=== PATIENT | male | born 1940 | race Native Hawaiian/Other Pacific Islander ===

== ENCOUNTER 2017-01-02 18:00 | Inpatient (IN) | payer MEDICARE, OTHER ==
[~2017-01-02] VITALS: Ht 175.3 cm; Wt 75.3 kg
[2017-01-02] MEDS ORDERED: IV D5 1/2 NS 1000 ML 1,000 ML IV ONE (18:15)
[2017-01-02 18:37] LABS: BASOPHILS % (AUTO) 0.4 % (0.0-2.0); EOSINOPHILS % (AUTO) 0.2 % (0.0-7.0); HEMATOCRIT 34.5 % (40.0-50.0); HEMOGLOBIN 11.4 g/dL (14.0-18.0); LYMPHOCYTES # (AUTO) 0.8 K/uL (0.8-4.8); LYMPHOCYTES % (AUTO) 7.9 % (20.5-51.5); MEAN CORPUSCULAR HEMOGLOBIN 31.5 uug (27.0-31.0); MEAN CORPUSCULAR HGB CONC 33 g/dL (32.0-37.0); MEAN CORPUSCULAR VOLUME 95.6 fL (82.0-92.0); MONOCYTES # (AUTO) 0.7 K/uL (0.1-1.30); MONOCYTES % (AUTO) 6.6 % (0.0-11.0); NEUTROPHILS # (AUTO) 8.6 K/uL (1.8-8.9); NEUTROPHILS % (AUTO) 84.9 % (38.5-71.5); PLATELET COUNT (AUTO) 178 K/uL (150-450); RED BLOOD CELL COUNT(AUTO) 3.61 MIL/uL (4.70-6.10); RED CELL DISTRIBUTION WIDTH 12.6 % (11.5-14.5); WHITE BLOOD COUNT (AUTO) 10.1 K/uL (4.0-11.2)
[2017-01-02] MEDS ORDERED: BLOO-360 IN (18:37)
[2017-01-02] MEDS ORDERED: ATOR80TA PO (18:37)
[2017-01-02] MEDS ORDERED: CLOP75TA2 PO (18:37)
[2017-01-02] MEDS ORDERED: MIRT15TA PO (18:37)
[2017-01-02] MEDS ORDERED: [UNRECOGNIZED DRUG - SUPPLY] (18:37)
[2017-01-02] MEDS ORDERED: RANO10003 PO (18:37)
[2017-01-02] MEDS ORDERED: FURO-151 PO (18:37)
[2017-01-02] MEDS ORDERED: INSU3INS6 SUBCUT (18:37)
[2017-01-02] MEDS ORDERED: LISI-607 PO (18:37)
[2017-01-02] MEDS ORDERED: ALBU2.5V13 IH (18:37)
[2017-01-02] MEDS ORDERED: PANT40TA2 PO (18:37)
[2017-01-02] MEDS ORDERED: ASPI81TA31 PO (18:37)
[2017-01-02] MEDS ORDERED: CARV25TA2 PO (18:37)
[2017-01-02] MEDS ORDERED: HYDR-552 PO (18:37)
[2017-01-02] MEDS ORDERED: METF10002 PO (18:37)
[2017-01-02] MEDS ORDERED: SPIR25TA4 PO (18:37)
[2017-01-02] MEDS ORDERED: MECL12.582 PO (18:37)
[2017-01-02] MEDS ORDERED: ACET-2154 PO ×2 (18:37)
--- NOTE | 2017-01-02 18:53 | NUR ---
Dr Savage is at bedside evaluating the patient.
[2017-01-02 18:57] LABS: BILIRUBIN,DIRECT 0.2 mg/dL (0.0-0.2); BILIRUBIN,TOTAL 0.6 mg/dL (0.2-1.0); CALCIUM 8.9 mg/dL (8.5-10.1); POTASSIUM 4.4 mmol/L (3.5-5.1); TOTAL PROTEIN, SERUM 7.5 g/dL (6.4-8.2)
[2017-01-02 18:59] LABS: CREATININE 4.8 mg/dL (0.6-1.3)
[2017-01-02 19:25] LABS: ETHANOL < 3 MG/DL (0-0)
[2017-01-02 19:40] LABS: LACTIC ACID 3.3 mmol/L (0.4-2.0)
--- NOTE | 2017-01-02 20:15 | NUR ---
Patient's daughter informed staff that she was speaking with the patient's primary care provider who has admitting priveledges at [facility]. Family attempting to request transfer to that hospital for continuity of care. Education provided regarding policies, information given to family to assist them in making decision.
[2017-01-02] MEDS ORDERED: IV NORMAL SALINE 1000 ML BAG IV ONE (20:30)
[2017-01-02] MEDS ORDERED: PIPERACILLIN/TAZO 0.75 G in IV DEXTROSE 5% 50 ML IV PRN (20:30)
[2017-01-02 20:51] LABS: *BILIRUBIN,URIN NEGATIVE (NEGATIVE); *BLOOD, URINE NEGATIVE (NEGATIVE); *CLARITY,URINE CLEAR (CLEAR); *COLOR,URINE YELLOW (YELLOW); *KETONES,URINE NEGATIVE (NEGATIVE); *PROTEIN,URINE NEGATIVE (NEGATIVE); *UROBILINOGEN,URINE 0.2 E.U./dl (NORMAL); LEUKOCYTE ESTERASE ,URINE NEGATIVE (NEGATIVE); NITRITE, URINE NEGATIVE (NEGATIVE); UGLUCOSE NEGATIVE (NEGATIVE)
[2017-01-02 21:25] LABS: *CANNABINOID, URINE NEGATIVE (NEGATIVE); *PHENCYCLIDINE SCREEN,URINE NEGATIVE (NEGATIVE)
[2017-01-02 21:26] LABS: *AMPHETAMINE, URINE NEGATIVE (NEGATIVE); *BARBITURATE, URINE NEGATIVE (NEGATIVE)
[2017-01-02 21:27] LABS: *COCCAINE, URINE NEGATIVE (NEGATIVE); *OPIATE, URINE NEGATIVE (NEGATIVE)
[2017-01-02] MEDS ORDERED: PIPERACILLIN/TAZOBACTAM/D5W 50 ML ONE (21:27)
--- NOTE | 2017-01-02 21:30 | NUR ---
Patient's daughter informed staff that PMD unable to obtain bed at [place]. Patient's daughter requested to admit to this hospital instead.
--- NOTE | 2017-01-02 21:43 | NUR ---
Call placed to [facility] nephrology, Dr. Escobedo will be paged.
--- NOTE | 2017-01-02 22:26 | NUR ---
SBAR report to [facility]. Room not ready for patient at this time. Nursing Traffic Inspector notified.
[2017-01-02] MEDS ORDERED: IV 10% DEXTROSE 1,000 ML IV STA (23:08)
--- NOTE | 2017-01-02 23:59 | NUR ---
Pt. admitted to TELE, under care of Dr. Ecsobedo Belongs List completed
--- NOTE | 2017-01-03 | NUR ---
ADMITTEDTHIS 76 Y.O. MALE VIA GUERNEY ACCOMPANIED BY ER NURSE APPEARS WEAK AND LETHARGIC, CONFUSED, RESPONDS TO NAME,VS STABLE, ON TELE SINUS 73, SKIN WARM AND DRY, NO OPEN AREAS NOTED, LEFT UPPER EXTREMITY WEAK AND FLACCID,ADMISSION ASSESSMENT DONE, 2 IVLINES ON EACH HANDS,PATENT AND NO SSX OF INFILTRATION . DR. SHAH NOTIFIED AND GAVE ADMISSION ORDERS. NEEDS ATTENDED TO.
[2017-01-03 00:28] VITALS: BP 114/67
[2017-01-03] MEDS ORDERED: IV NS 1000 ML 1,000 ML IV PRN (01:00)
[2017-01-03] MEDS ORDERED: ONDANSETRON 4 MG/2 ML VIAL IV PRN (01:00)
[2017-01-03] MEDS ORDERED: DEXTROSE 50% 50 ML DISP.SYRIN IV PRN (01:00)
[2017-01-03] MEDS ORDERED: ZOLPIDEM 5 MG TABLET ONE (01:22)
--- NOTE | 2017-01-03 02:00 | NUR ---
MEDICATED WITH AMBIEN AND REPOSITIONED FOR COMFORT,KEPT WARM AND DRY, F/C DRAINING WELL TO TEA COLORED URINE, REORIENTATION PROVIDED.CALL LITE W/I REACH.
[2017-01-03 04:00] VITALS: BP 131/81
[2017-01-03] MEDS ORDERED: MAGN400O4 PO (04:03)
[2017-01-03] MEDS ORDERED: DEXT50DI8 IV (04:03)
[2017-01-03] MEDS ORDERED: GLUC1KIT IJ (04:03)
[2017-01-03] MEDS ORDERED: DOCU-170 PO (04:03)
[2017-01-03] MEDS ORDERED: DEXT15LI44 PO (04:03)
[2017-01-03] MEDS ORDERED: BISA-79 PO (04:03)
[2017-01-03 04:24] VITALS: BP 114/67
--- NOTE | 2017-01-03 05:41 | NUR ---
SLEPT ON AND OFF, O2 AT 2L/VIA NC ON , MILD SOB,NOTED, HOB UP 30 DEGREES,LAKEISHA CONTINUE TO MONITOR
[2017-01-03] MEDS: BLOOD SUGAR DIAGNOSTIC 1 EACH STRIP VI SCH ×5 (06:13→21:14)
[2017-01-03] MEDS ORDERED: DEXTROSE 50% 50 ML DISP.SYRIN ONE (06:25)
[2017-01-03 06:50] LABS: BASOPHILS # (AUTO) 0.1 K/uL (0.0-0.2); BASOPHILS % (AUTO) 1.1 % (0.0-2.0); EOSINOPHILS % (AUTO) 0.3 % (0.0-7.0); HEMOGLOBIN 10.6 g/dL (14.0-18.0); LYMPHOCYTES # (AUTO) 1.8 K/uL (0.8-4.8); LYMPHOCYTES % (AUTO) 20.8 % (20.5-51.5); MEAN CORPUSCULAR HEMOGLOBIN 32.2 uug (27.0-31.0); MEAN CORPUSCULAR HGB CONC 33 g/dL (32.0-37.0); MEAN CORPUSCULAR VOLUME 96.8 fL (82.0-92.0); MONOCYTES # (AUTO) 0.8 K/uL (0.1-1.30); NEUTROPHILS # (AUTO) 5.8 K/uL (1.8-8.9); NEUTROPHILS % (AUTO) 68.8 % (38.5-71.5); PLATELET COUNT (AUTO) 165 K/uL (150-450); RED CELL DISTRIBUTION WIDTH 12.8 % (11.5-14.5); WHITE BLOOD COUNT (AUTO) 8.5 K/uL (4.0-11.2)
[2017-01-03 06:57] LABS: ALBUMIN 3.6 g/dL (3.4-5.0); BILIRUBIN,TOTAL 0.6 mg/dL (0.2-1.0); CALCIUM 8.5 mg/dL (8.5-10.1); MAGNESIUM 2.1 mg/dL (1.8-2.4); PHOSPHOROUS 3.2 mg/dL (2.5-4.9); POTASSIUM 4.1 mmol/L (3.5-5.1); TOTAL PROTEIN, SERUM 6.8 g/dL (6.4-8.2)
[2017-01-03 07:35] LABS: CREATININE 3.7 mg/dL (0.6-1.3)
--- NOTE | 2017-01-03 07:42 | NUR ---
PER LAB PT BLOOD SUGAR REPORTED 25 ,RECHECK THE BLOOD SUGAR IS 96 NOTIFIED
[2017-01-03] MEDS ORDERED: ALBUTEROL SULFATE 2.5 MG/ 0.5 ML NEBU IH PRN (07:45)
[2017-01-03] MEDS ORDERED: DOCUSATE SODIUM 100 MG CAPSULE PO PRN (07:45)
[2017-01-03] MEDS ORDERED: MAGNESIUM HYDROXIDE 30 ML LIQUID UDC PO PRN (07:45)
[2017-01-03] MEDS ORDERED: BISACODYL 5 MG TABLET.DR PO PRN (07:45)
[2017-01-03] MEDS ORDERED: ACETAMINOPHEN 325 MG TABLET PO PRN (07:45)
[2017-01-03] MEDS ORDERED: MECLIZINE HCL 12.5 MG TABLET PO PRN (07:45)
[2017-01-03] MEDS ORDERED: HYDROCODONE/APAP 5-325MG TABLET PO PRN ×2 (07:45)
[2017-01-03] MEDS: CARVEDILOL 25 MG TABLET PO SCH ×2 (07:59→17:07)
[2017-01-03] MEDS: PANTOPRAZOLE SODIUM 40 MG TABLET.DR PO SCH (07:59)
[2017-01-03] MEDS: ASPIRIN 81 MG TAB.CHEW PO SCH (08:00)
[2017-01-03] MEDS: CLOPIDOGREL 75 MG TABLET PO SCH (08:00)
[2017-01-03] MEDS ORDERED: ALBUTEROL SULFATE 2.5 MG/3 ML NEBU NEB PRN (08:00)
[2017-01-03] MEDS ORDERED: FUROSEMIDE 40 MG TABLET PO SCH (09:00)
[2017-01-03] MEDS ORDERED: LISINOPRIL 5 MG TABLET PO SCH (09:00)
[2017-01-03] MEDS: IV D5/ 0.9% NACL 1,000 ML IV PRN (09:14)
[2017-01-03] MEDS: RANOLAZINE 500 MG TAB.ER.12H PO SCH ×2 (09:36→20:44)
[2017-01-03 11:06] LABS: *CREATININE,URINE 81.1 mg/dL (30-125); *URINE TOTAL PROTEIN RANDOM 20.3 mg/dL (<150/24HR)
[2017-01-03 11:33] VITALS: BP 103/52
[2017-01-03 11:46] LABS: *BILIRUBIN,URIN NEGATIVE (NEGATIVE); *BLOOD, URINE 2+ (NEGATIVE); *COLOR,URINE YELLOW (YELLOW); *KETONES,URINE NEGATIVE (NEGATIVE); *PROTEIN,URINE NEGATIVE (NEGATIVE); *UROBILINOGEN,URINE 0.2 E.U./dl (NORMAL); LEUKOCYTE ESTERASE ,URINE 1+ (NEGATIVE); NITRITE, URINE NEGATIVE (NEGATIVE); UGLUCOSE NEGATIVE (NEGATIVE)
[2017-01-03 12:18] LABS: *CLARITY,URINE HAZY (CLEAR)
[2017-01-03 12:25] LABS: BACTERIA,URINE FEW /HPF (NONE SEEN); WBC,URINE 0-3 /HPF (0-3)
[2017-01-03 12:26] LABS: SQUAMOUS EPITHELIAL CELL,UR FEW /HPF (NONE SEEN)
[2017-01-03 15:54] VITALS: BP 94/64
--- NOTE | 2017-01-03 19:30 | NUR ---
Received patient awake with no complaints of pain. No s/s of distress. Call light within reach. Will continue to monitor.
[2017-01-03 20:00] VITALS: BP 116/70
[2017-01-03] MEDS: MIRTAZAPINE 15 MG TABLET PO SCH (20:44)
[2017-01-03] MEDS: ATORVASTATIN 40 MG TABLET PO SCH (20:44)
[2017-01-03] MEDS ORDERED: INSULIN DETEMIR 300 UNIT/3 ML CARTRIDGE SQ SCH (21:00)
[2017-01-04] VITALS: BP 116/73
[2017-01-04] MEDS: ZOLPIDEM 5 MG TABLET PO PRN (02:54)
[2017-01-04 04:00] VITALS: BP 117/75
[2017-01-04] MEDS: IV D5/ 0.9% NACL 1,000 ML IV PRN (05:23)
[2017-01-04] MEDS: PANTOPRAZOLE SODIUM 40 MG TABLET.DR PO SCH (06:17)
[2017-01-04] MEDS: BLOOD SUGAR DIAGNOSTIC 1 EACH STRIP VI SCH ×4 (06:21→22:33)
--- NOTE | 2017-01-04 06:48 | NUR ---
Patient awake in bed, no s/s of distress. No complaints of pain at this time. Due meds given. Frequent checks done to ensure safety. Call light kept within reach. Kept comfortable. Needs attended. Endorsed accordingly.
[2017-01-04 07:14] LABS: BASOPHILS % (AUTO) 0.6 % (0.0-2.0); EOSINOPHILS # (AUTO) 0.2 K/uL (0.0-0.7); EOSINOPHILS % (AUTO) 2.2 % (0.0-7.0); HEMATOCRIT 33.9 % (40.0-50.0); HEMOGLOBIN 11.3 g/dL (14.0-18.0); LYMPHOCYTES # (AUTO) 1.7 K/uL (0.8-4.8); LYMPHOCYTES % (AUTO) 20.8 % (20.5-51.5); MEAN CORPUSCULAR HEMOGLOBIN 32.3 uug (27.0-31.0); MEAN CORPUSCULAR HGB CONC 33 g/dL (32.0-37.0); MEAN CORPUSCULAR VOLUME 96.8 fL (82.0-92.0); MONOCYTES # (AUTO) 0.8 K/uL (0.1-1.30); MONOCYTES % (AUTO) 10.3 % (0.0-11.0); NEUTROPHILS # (AUTO) 5.3 K/uL (1.8-8.9); NEUTROPHILS % (AUTO) 66.1 % (38.5-71.5); PLATELET COUNT (AUTO) 154 K/uL (150-450); RED CELL DISTRIBUTION WIDTH 12.7 % (11.5-14.5)
[2017-01-04] MEDS: CARVEDILOL 25 MG TABLET PO SCH ×2 (07:22→17:01)
[2017-01-04 07:27] LABS: ALBUMIN 3.6 g/dL (3.4-5.0); BILIRUBIN,TOTAL 0.8 mg/dL (0.2-1.0); CALCIUM 8.8 mg/dL (8.5-10.1); CREATININE 2.5 mg/dL (0.6-1.3); PHOSPHOROUS 3.1 mg/dL (2.5-4.9)
[2017-01-04] MEDS: RANOLAZINE 500 MG TAB.ER.12H PO SCH ×2 (08:00→20:49)
[2017-01-04] MEDS: CLOPIDOGREL 75 MG TABLET PO SCH (08:01)
[2017-01-04] MEDS: ASPIRIN 81 MG TAB.CHEW PO SCH (08:01)
[2017-01-04] MEDS: INSULIN REGULAR, HUMAN 300 UNIT/3 ML VIAL SQ PRN ×2 (11:02→22:34)
[2017-01-04 11:52] VITALS: BP 106/64
[2017-01-04 15:53] VITALS: BP 131/68
[2017-01-04 20:00] VITALS: BP 123/72
[2017-01-04] MEDS: ATORVASTATIN 40 MG TABLET PO SCH (20:49)
[2017-01-04] MEDS: MIRTAZAPINE 15 MG TABLET PO SCH (20:49)
--- NOTE | 2017-01-04 22:35 | NUR ---
Patient Refused insulin shot. Patients blood sugar is 135. The dose of insulin is 2 units per sliding scale, per MD order. Patient states that his blood sugar usually runs very low, so he doesn't need it. Will continue to monitor
--- NOTE | 2017-01-04 23:04 | NUR ---
IV inserted. (R) Wrist #[id number] IV fluids restarted. Patient tolerating infusion well. Will continue to monitor
[2017-01-05] MEDS: ZOLPIDEM 5 MG TABLET PO PRN (01:13)
[2017-01-05 05:49] VITALS: BP 125/61
[2017-01-05] MEDS: PANTOPRAZOLE SODIUM 40 MG TABLET.DR PO SCH (06:36)
[2017-01-05] MEDS: IV D5/ 0.9% NACL 1,000 ML IV PRN (06:45)
[2017-01-05] MEDS: BLOOD SUGAR DIAGNOSTIC 1 EACH STRIP VI SCH ×4 (07:29→21:07)
--- NOTE | 2017-01-05 07:30 | NUR ---
PT RECEIVED IN BED SLEEPING.V/S ARE STABLE .ASSESSMENT DONE.PT IS CONFUSED.DAUGHTER IS AT BED SIDE.
[2017-01-05] MEDS: CARVEDILOL 25 MG TABLET PO SCH ×2 (07:41→17:09)
[2017-01-05 08:06] LABS: A/G RATIO 1.7 (0.7-1.7); ALBUMIN 3.9 g/dL (2.9-4.4); ALPHA-1-GLOBULIN 0.2 g/dL (0.0-0.4); ALPHA-2-GLOBULIN 0.4 g/dL (0.4-1.0); BETA GLOBULIN 0.7 g/dL (0.7-1.3); GLOBULIN, TOTAL 2.3 g/dL (2.2-3.9); M-SPIKE Not Observed g/dL (Not Observed)
[2017-01-05] MEDS: RANOLAZINE 500 MG TAB.ER.12H PO SCH ×2 (08:13→20:23)
[2017-01-05] MEDS: CLOPIDOGREL 75 MG TABLET PO SCH (08:13)
[2017-01-05] MEDS: ASPIRIN 81 MG TAB.CHEW PO SCH (08:13)
[2017-01-05 10:06] LABS: BASOPHILS % (AUTO) 0.5 % (0.0-2.0); EOSINOPHILS # (AUTO) 0.3 K/uL (0.0-0.7); EOSINOPHILS % (AUTO) 6.2 % (0.0-7.0); HEMATOCRIT 31.5 % (40.0-50.0); HEMOGLOBIN 10.3 g/dL (14.0-18.0); LYMPHOCYTES # (AUTO) 1.4 K/uL (0.8-4.8); LYMPHOCYTES % (AUTO) 26.6 % (20.5-51.5); MEAN CORPUSCULAR HEMOGLOBIN 31.5 uug (27.0-31.0); MEAN CORPUSCULAR HGB CONC 33 g/dL (32.0-37.0); MEAN CORPUSCULAR VOLUME 96.8 fL (82.0-92.0); MONOCYTES # (AUTO) 0.4 K/uL (0.1-1.30); MONOCYTES % (AUTO) 6.9 % (0.0-11.0); NEUTROPHILS # (AUTO) 3.3 K/uL (1.8-8.9); NEUTROPHILS % (AUTO) 59.8 % (38.5-71.5); PLATELET COUNT (AUTO) 137 K/uL (150-450); RED BLOOD CELL COUNT(AUTO) 3.26 MIL/uL (4.70-6.10); RED CELL DISTRIBUTION WIDTH 12.3 % (11.5-14.5); WHITE BLOOD COUNT (AUTO) 5.4 K/uL (4.0-11.2)
[2017-01-05 10:12] LABS: BILIRUBIN,TOTAL 0.8 mg/dL (0.2-1.0); CALCIUM 8.2 mg/dL (8.5-10.1); CREATININE 2.2 mg/dL (0.6-1.3); MAGNESIUM 1.5 mg/dL (1.8-2.4); PHOSPHOROUS 3.4 mg/dL (2.5-4.9); TOTAL PROTEIN, SERUM 6.2 g/dL (6.4-8.2)
[2017-01-05] MEDS: INSULIN REGULAR, HUMAN 300 UNIT/3 ML VIAL SQ PRN ×2 (11:25→21:11)
[2017-01-05 12:10] VITALS: BP 101/46
[2017-01-05 13:26] LABS: PTH, INTACT 36 pg/mL (15-65)
--- NOTE | 2017-01-05 15:55 | NUR ---
PT BLOOD SUGAR IS 73 ORANGE JUICE GIVEN AND MADE AWARE.
[2017-01-05 16:09] VITALS: BP 116/78
--- NOTE | 2017-01-05 17:57 | NUR ---
PT IS EATING HIS DINNER ,DAUGHTER IS AT BED SIDE.
[2017-01-05 19:00] VITALS: BP 91/56
[2017-01-05] MEDS: ATORVASTATIN 40 MG TABLET PO SCH (20:24)
[2017-01-05] MEDS: MIRTAZAPINE 15 MG TABLET PO SCH (20:24)
[2017-01-06] MEDS: IV D5/ 0.9% NACL 1,000 ML IV PRN (01:51)
[2017-01-06 05:23] VITALS: BP 119/74
[2017-01-06] MEDS: PANTOPRAZOLE SODIUM 40 MG TABLET.DR PO SCH (06:39)
[2017-01-06 06:50] LABS: BASOPHILS # (AUTO) 0.1 K/uL (0.0-0.2); BASOPHILS % (AUTO) 1.2 % (0.0-2.0); EOSINOPHILS # (AUTO) 0.5 K/uL (0.0-0.7); EOSINOPHILS % (AUTO) 6.9 % (0.0-7.0); HEMATOCRIT 32.7 % (40.0-50.0); HEMOGLOBIN 10.7 g/dL (14.0-18.0); LYMPHOCYTES # (AUTO) 2.7 K/uL (0.8-4.8); LYMPHOCYTES % (AUTO) 38.5 % (20.5-51.5); MEAN CORPUSCULAR HEMOGLOBIN 31.3 uug (27.0-31.0); MEAN CORPUSCULAR HGB CONC 33 g/dL (32.0-37.0); MEAN CORPUSCULAR VOLUME 96.1 fL (82.0-92.0); MONOCYTES # (AUTO) 0.6 K/uL (0.1-1.30); MONOCYTES % (AUTO) 8.3 % (0.0-11.0); NEUTROPHILS # (AUTO) 3.2 K/uL (1.8-8.9); NEUTROPHILS % (AUTO) 45.1 % (38.5-71.5); PLATELET COUNT (AUTO) 153 K/uL (150-450); RED BLOOD CELL COUNT(AUTO) 3.41 MIL/uL (4.70-6.10); RED CELL DISTRIBUTION WIDTH 12.6 % (11.5-14.5)
--- NOTE | 2017-01-06 06:54 | NUR ---
sleeping well overnihgt,denies any pain or discmfort,had smear bm last nihgt ,diaper changed.helms in place intact ,draining well,continue with iv fluids.daughter at bedside stay overnight to watch pt as pt get confused at night.
[2017-01-06 07:01] LABS: WHITE BLOOD COUNT (AUTO) 7.1 K/uL (4.0-11.2)
[2017-01-06] MEDS: BLOOD SUGAR DIAGNOSTIC 1 EACH STRIP VI SCH ×4 (07:04→23:24)
[2017-01-06 07:36] LABS: ALBUMIN 3.1 g/dL (3.4-5.0); BILIRUBIN,TOTAL 0.9 mg/dL (0.2-1.0); CALCIUM 8.3 mg/dL (8.5-10.1); MAGNESIUM 1.4 mg/dL (1.8-2.4); POTASSIUM 3.7 mmol/L (3.5-5.1); TOTAL PROTEIN, SERUM 6.4 g/dL (6.4-8.2)
[2017-01-06 07:38] LABS: CREATININE 1.8 mg/dL (0.6-1.3)
[2017-01-06] MEDS: CARVEDILOL 25 MG TABLET PO SCH ×2 (08:00→18:00)
[2017-01-06] MEDS: ASPIRIN 81 MG TAB.CHEW PO SCH (08:07)
[2017-01-06] MEDS: CLOPIDOGREL 75 MG TABLET PO SCH (08:08)
[2017-01-06] MEDS: RANOLAZINE 500 MG TAB.ER.12H PO SCH ×2 (08:08→22:03)
[2017-01-06 11:48] VITALS: BP 106/68
[2017-01-06] MEDS: INSULIN REGULAR, HUMAN 300 UNIT/3 ML VIAL SQ PRN (11:54)
[2017-01-06] MEDS ORDERED: MAGNESIUM OXIDE 400 MG TABLET PO ONE (13:00)
[2017-01-06 16:11] VITALS: BP 106/71
--- NOTE | 2017-01-06 17:43 | NUR ---
PT REFUSING INSULIN AT THIS TIME, BS 140. WILL CONTINUE TO MONITOR.
--- NOTE | 2017-01-06 18:08 | NUR ---
PT WATCHING TV IN BED, NO SIGNS OF ACUTE DISTRESS, ALL SAFETY AND COMFORT MEASURES MAINTAINED THROUGHOUT SHIFT, CALL LIGHT IN REACH
[2017-01-06 20:00] VITALS: BP 125/83
[2017-01-06] MEDS: MIRTAZAPINE 15 MG TABLET PO SCH (22:03)
[2017-01-06] MEDS: ATORVASTATIN 40 MG TABLET PO SCH (22:03)
--- NOTE | 2017-01-07 | NUR ---
pt fingerstick BG is 148mg/dl , daughter refused to have her dad take insulin SS.
[2017-01-07 04:28] VITALS: BP 123/73
[2017-01-07] MEDS: PANTOPRAZOLE SODIUM 40 MG TABLET.DR PO SCH (06:24)
[2017-01-07 07:11] LABS: ALBUMIN 3.2 g/dL (3.4-5.0); BILIRUBIN,TOTAL 0.7 mg/dL (0.2-1.0); CALCIUM 8.7 mg/dL (8.5-10.1); MAGNESIUM 1.5 mg/dL (1.8-2.4); PHOSPHOROUS 2.9 mg/dL (2.5-4.9); POTASSIUM 3.9 mmol/L (3.5-5.1); TOTAL PROTEIN, SERUM 6.6 g/dL (6.4-8.2)
[2017-01-07] MEDS: BLOOD SUGAR DIAGNOSTIC 1 EACH STRIP VI SCH ×2 (07:16→10:47)
[2017-01-07 07:20] LABS: CREATININE 1.7 mg/dL (0.6-1.3)
--- NOTE | 2017-01-07 07:30 | NUR ---
PT RECEIVED IN BED SLEEPING ,DAUGHTER IS AT BED SIDE.PT IS AXOX2.V/S ARE STABLE.
[2017-01-07 07:39] LABS: BASOPHILS # (AUTO) 0.1 K/uL (0.0-0.2); BASOPHILS % (AUTO) 0.8 % (0.0-2.0); EOSINOPHILS # (AUTO) 0.5 K/uL (0.0-0.7); EOSINOPHILS % (AUTO) 7.2 % (0.0-7.0); HEMATOCRIT 31.5 % (40.0-50.0); HEMOGLOBIN 10.9 g/dL (14.0-18.0); LYMPHOCYTES % (AUTO) 43.1 % (20.5-51.5); MEAN CORPUSCULAR HEMOGLOBIN 33.7 uug (27.0-31.0); MEAN CORPUSCULAR HGB CONC 35 g/dL (32.0-37.0); MEAN CORPUSCULAR VOLUME 97.2 fL (82.0-92.0); MONOCYTES # (AUTO) 0.6 K/uL (0.1-1.30); MONOCYTES % (AUTO) 7.8 % (0.0-11.0); NEUTROPHILS # (AUTO) 2.9 K/uL (1.8-8.9); NEUTROPHILS % (AUTO) 41.1 % (38.5-71.5); PLATELET COUNT (AUTO) 180 K/uL (150-450); RED BLOOD CELL COUNT(AUTO) 3.24 MIL/uL (4.70-6.10); RED CELL DISTRIBUTION WIDTH 12.8 % (11.5-14.5); WHITE BLOOD COUNT (AUTO) 7.1 K/uL (4.0-11.2)
[2017-01-07] MEDS: CARVEDILOL 25 MG TABLET PO SCH (08:20)
[2017-01-07] MEDS: ASPIRIN 81 MG TAB.CHEW PO SCH (08:21)
[2017-01-07] MEDS: CLOPIDOGREL 75 MG TABLET PO SCH (08:21)
[2017-01-07] MEDS: RANOLAZINE 500 MG TAB.ER.12H PO SCH (08:21)
[2017-01-07] MEDS ORDERED: FUROSEMIDE 20 MG TABLET PO SCH (09:00)
[2017-01-07 12:05] VITALS: BP 99/59
[2017-01-07] MEDS: INSULIN REGULAR, HUMAN 300 UNIT/3 ML VIAL SQ PRN (12:21)
[2017-01-07] MEDS ORDERED: Furosemide PO (13:25)
[2017-01-07] MEDS ORDERED: PNEUMOCOCCAL 23-VAL P-SAC VAC 0.5 ML VIAL IM ONE (15:15)
[2017-01-07] MEDS ORDERED: INFLUENZA VACCINE 0.5 ML DISP.SYRIN IM ONE (15:15)
--- NOTE | 2017-01-07 15:40 | NUR ---
D/C ORDERS RECEIVED NOTED AND CARRIED OUT,D/C INSTRUCTION AND RN REPORT GIVEN TO ZARA WORKMAN.D/C FOLLY CATHETER PT VOID.D/C HEPLOCK PER MD ORDERS.PT LEFT THE FACILITY VIA AMBULANCES IN STABLE CONDITION.
== END 2017-01-07 15:45 | DRG 643 ==
LOC: ER 18:00 → TELE 23:11 → MED 01-04 17:54
PROVIDERS: ADMIT Internal Medicine; ATTEND Internal Medicine
DX: E16.0 Drug-induced hypoglycemia without coma (principal); N17.0 Acute kidney failure with tubular necrosis; G93.41 Metabolic encephalopathy; R53.2 Functional quadriplegia; I50.32 Chronic diastolic (congestive) heart failure; E78.5 Hyperlipidemia, unspecified; E11.649 Type 2 diabetes mellitus with hypoglycemia without coma; I25.10 Atherosclerotic heart disease of native coronary artery without angina pectoris; Z95.1 Presence of aortocoronary bypass graft; Z86.73 Personal history of transient ischemic attack (TIA), and cerebral infarction without residual deficits; T38.3X5A Adverse effect of insulin and oral hypoglycemic [antidiabetic] drugs, initial encounter; Y92.009 Unspecified place in unspecified non-institutional (private) residence as the place of occurrence of the external cause; D64.9 Anemia, unspecified; G83.24 Monoplegia of upper limb affecting left nondominant side; E86.1 Hypovolemia
CPT/HCPCS: 36415; 51702; 70030-TC; 70450; 71010; 76770; 80307; 83605; 83735; 83970; 84100; 84155; 84156; 84165; 84300; 85025; 85730; 87040; 87086; 90732; 93005; 97001; 97003; 97110; 97112; 97530; A4663; G6040-TC; J1815; J2543; J3490; J7030; J7040; J7042